=== PATIENT | male | born 1960 | race Caucasian/White ===

== ENCOUNTER 2022-08-26 07:03 | Day surgery (SDC) | payer MEDICARE, MEDICAID ==
[~2022-08-26] VITALS: Ht 177.8 cm; Wt 110.5 kg
[~2022-08-26 07:03] MED LIST: ASPI-1450 PO; BEMP180T PO; CARI-493 PO; CHOL200059 PO; CYCL-448 PO; DAPA10TA PO; DOCU-385 PO; DULO20CA71 PO; FLUT16SP NASAL; GABA-1181 PO; ICOS1CAP PO; INSU3INS3 SQ; IRBE300T18 PO; ISON300T17 PO; METO-296 PO; METO200T49 PO; OMEP20 PO; PRAM0.258 PO; PSYL0.4C2 PO; SITA100 PO; SODIUM CHLORIDE 0.9% 1,000 ML IV ONE; TRAM-559 PO; TRAZ-186 PO; VARE0.5T7 PO
[2022-08-26] MEDS ORDERED: SODIUM CHLORIDE 0.9% 1,000 ML ONE (07:32)
[2022-08-26 08:01] LABS: GLUCOMETER DEV NAME(LOC) SDS.; GLUCOSE,POINT OF CARE 190 MG/DL (70-110)
[2022-08-26] MEDS ORDERED: DIAZEPAM 5 MG TABLET ONE (08:13)
[2022-08-26] MEDS ORDERED: DiphenhydrAMINE HCL 50 MG CAPSULE ONE (08:14)
[2022-08-26] MEDS ORDERED: ASPIRIN 81 MG CHEWABLE TABLET ONE (08:14)
[2022-08-26] MEDS ORDERED: SODIUM BICARBONATE 50 MEQ/50 ML VIAL ONE (08:41)
[2022-08-26] MEDS ORDERED: LIDOCAINE/PF 1% 30 ML VIAL ONE (08:41)
[2022-08-26] MEDS ORDERED: HEPARIN SODIUM 1000 UNITS/NS 1,000 ML ONE (08:41)
[2022-08-26] MEDS ORDERED: IOHEXOL 300 MG/ML 100 ML VIAL ONE (08:41)
[2022-08-26] MEDS ORDERED: ASPIRIN 81 MG CHEWABLE TABLET PO ONE (09:00)
[2022-08-26] MEDS ORDERED: DIAZEPAM 5 MG TABLET PO ONE (09:00)
[2022-08-26] MEDS ORDERED: DiphenhydrAMINE HCL 50 MG CAPSULE PO ONE (09:00)
[2022-08-26 09:02] VITALS: BP 166/82
[2022-08-26] MEDS ORDERED: FentaNYL CITRATE PF 100 MCG/2 ML VIAL ONE (09:07)
[2022-08-26] MEDS ORDERED: MIDAZOLAM HCL 2 MG/2 ML VIAL ONE (09:08)
[2022-08-26] MEDS ORDERED: IOHEXOL 300 MG/ML 100 ML VIAL IARTER ONE (09:30)
[2022-08-26] MEDS ORDERED: LIDOCAINE 1% 30 ML/SOD BICARB 8.4% 4 ML SQ ONE (09:30)
[2022-08-26] MEDS ORDERED: MIDAZOLAM HCL 2 MG/2 ML VIAL IVP ONE ×2 (09:30→09:45)
[2022-08-26] MEDS ORDERED: HEPARIN SODIUM 1000 UNITS/NS 1,000 ML IARTER ONE (09:30)
[2022-08-26] MEDS ORDERED: FentaNYL CITRATE PF 100 MCG/2 ML VIAL IVP ONE ×2 (09:30→09:45)
[2022-08-26 09:42] VITALS: BP 165/70
== END 2022-08-26 13:10 | disposition home or self-care (01) ==
LOC: CATHLAB 07:03
PROVIDERS: ATTEND Internal Medicine Interventional Cardiology
DX: I25.10 Atherosclerotic heart disease of native coronary artery without angina pectoris (principal); G47.30 Sleep apnea, unspecified; I10 Essential (primary) hypertension; F17.210 Nicotine dependence, cigarettes, uncomplicated; E11.9 Type 2 diabetes mellitus without complications; E66.01 Morbid (severe) obesity due to excess calories; Z79.899 Other long term (current) drug therapy; Z98.890 Other specified postprocedural states; E78.00 Pure hypercholesterolemia, unspecified
CPT/HCPCS: 93458; 82962; 99152; 93005; C1760; J3010; J1644; J3490 ×2; J2250; J7030; Q9967